=== PATIENT | female | born 1980 | race African-American/Black ===

== ENCOUNTER 2019-01-26 09:21 | Emergency (ER) | payer MEDICAID, OTHER ==
[~2019-01-26] VITALS: Ht 172.7 cm; Wt 61.0 kg
[2019-01-26] MEDS ORDERED: IBUPROFEN 600MG TABLET PO ONE (10:45)
[2019-01-26] MEDS ORDERED: DIAZEPAM 5 MG TABLET PO ONE (10:45)
[2019-01-26 13:14] VITALS: BP 112/69
== END 2019-01-26 13:14 | disposition home or self-care (01) ==
LOC: ER 09:21
DX: S13.4XXA Sprain of ligaments of cervical spine, initial encounter (principal); S29.012A Strain of muscle and tendon of back wall of thorax, initial encounter; R51 Headache; V49.9XXA Car occupant (driver) (passenger) injured in unspecified traffic accident, initial encounter; Y93.89 Activity, other specified; Y92.89 Other specified places as the place of occurrence of the external cause; Y99.8 Other external cause status
CPT/HCPCS: 72040; 72070; 81025; 99283